=== PATIENT | female | born 1995 | race Caucasian/White ===

== ENCOUNTER 2016-12-02 18:04 | Emergency (ER) | payer OTHER ==
[~2016-12-02] VITALS: Ht 165.1 cm; Wt 77.3 kg
[2016-12-02 18:15] VITALS: BP 111/77; TEMP 98.2
[2016-12-02] MEDS ORDERED: CELEXA40 MG PO (18:21)
[2016-12-02] MEDS ORDERED: RISPERDAL3 MG PO (18:21)
[2016-12-02] MEDS ORDERED: PREDNISONE20 MG PO (19:31)
[2016-12-02 19:38] VITALS: PULSE 66
== END 2016-12-02 19:37 | disposition home or self-care (01) ==
LOC: COL.ER 18:04
DX: S50.862A Insect bite (nonvenomous) of left forearm, initial encounter (principal); S40.862A Insect bite (nonvenomous) of left upper arm, initial encounter; W57.XXXA Bitten or stung by nonvenomous insect and other nonvenomous arthropods, initial encounter; L23.89 Allergic contact dermatitis due to other agents
CPT/HCPCS: J7512

== ENCOUNTER 2017-02-22 17:27 | Emergency (ER) | payer OTHER ==
[~2017-02-22] VITALS: Ht 165.1 cm; Wt 87.2 kg
[~2017-02-22 17:27] MED LIST: CELEXA40 MG PO; PREDNISONE20 MG PO; RISPERDAL3 MG PO
[2017-02-22 17:31] VITALS: BP 120/72; TEMP 98.9
[2017-02-22 18:17] VITALS: PULSE 90
== END 2017-02-22 18:18 | disposition home or self-care (01) ==
LOC: COL.ER 17:27
DX: H65.92 Unspecified nonsuppurative otitis media, left ear (principal); F41.9 Anxiety disorder, unspecified; F32.9 Major depressive disorder, single episode, unspecified

== ENCOUNTER 2017-04-11 23:18 | Emergency (ER) | payer OTHER ==
[~2017-04-11] VITALS: Ht 165.1 cm; Wt 86.8 kg
[2017-04-11 23:22] VITALS: BP 126/67; TEMP 97.8
[2017-04-12 00:08] VITALS: PULSE 80
== END 2017-04-12 00:11 | disposition home or self-care (01) ==
LOC: COL.ER 23:18
DX: S40.862A Insect bite (nonvenomous) of left upper arm, initial encounter (principal); W57.XXXA Bitten or stung by nonvenomous insect and other nonvenomous arthropods, initial encounter

== ENCOUNTER 2017-04-24 19:48 | Emergency (ER) | payer OTHER ==
[~2017-04-24] VITALS: Ht 165.1 cm; Wt 87.3 kg
[2017-04-24 19:57] VITALS: BP 112/73; PULSE 86; TEMP 97.8
[2017-04-24] MEDS ORDERED: CEPHALEXIN250 M1 PO (20:21)
== END 2017-04-24 20:44 | disposition home or self-care (01) ==
LOC: COL.ER 19:48
DX: R21 Rash and other nonspecific skin eruption (principal)
CPT/HCPCS: J8540

== ENCOUNTER 2017-04-28 17:03 | Emergency (ER) | payer OTHER ==
[~2017-04-28] VITALS: Ht 165.1 cm; Wt 87.3 kg
[~2017-04-28 17:03] MED LIST changes: +CEPHALEXIN250 M1 PO
[2017-04-28 17:04] VITALS: BP 102/63; TEMP 98.9
[2017-04-28 18:00] VITALS: PULSE 77
[2017-04-28] MEDS ORDERED: PREDNISONE20 MG PO (18:00)
== END 2017-04-28 18:05 | disposition home or self-care (01) ==
LOC: COL.ER 17:03
DX: L25.9 Unspecified contact dermatitis, unspecified cause (principal); Z98.890 Other specified postprocedural states
CPT/HCPCS: J7512